=== PATIENT | female | born 1980 | race Caucasian/White ===

== ENCOUNTER 2019-12-03 10:48 | Emergency (ER) | payer BC ==
--- NOTE | 2019-12-03 12:10 | EDM.PDOC ---
ED HPI GENERAL MEDICAL PROBLEM - General Chief Complaint: Skin Complaint Stated Complaint: ALLERGIC REACTION Time Seen by Provider: 12/03/19 11:43 Source of Information: Reports: Patient History Limitations: Reports: No Limitations - History of Present Illness INITIAL COMMENTS - FREE TEXT/NARRATIVE: 39-year-old female visitor to the area presents with a pruritic rash on the bot toms of her feet, palms of her hand, distal lower extremities, and posterior arms. She also has a burning tongue. Her symptoms started yesterday and she had difficulty sleeping because of the itch. She denies any difficulty breathing, swallowing or talking. She denies a fever or chills. She notes no blisters inside her mouth. She is not on antibiotics or any other new medication. She used dog flea spray last week at home just prior to the onset of the rash. She has a history of allergies as well as anxiety. She is tried Zyrtec without any improvement in symptoms. - Related Data Allergies Allergy/AdvReac Type Severity Reaction Status Date / Time No Known Allergies Allergy Verified 12/03/19 11:22 Home Meds: Home Meds Control tab PO DAILY 12/03/19 [History] Cetirizine [ZyrTEC] 1 tab PO ASDIRECTED 12/03/19 [History] diphenhydrAMINE [Benadryl] 1 tab PO ASDIRECTED 12/03/19 [History] Past Medical History [employer]GICAL [employer]IC History: Reports: Musculoskeletal History: Reports: Fracture Psychiatric History: Reports: Anxiety, Depression - Past Surgical History Female Surgical History: Reports: Section Social & Family History - Tobacco Use Smoking Status *Q: Never Smoker - Caffeine Use Caffeine Use: Reports: Coffee, Tea - Alcohol Use Days Per Week of Alcohol Use: 2 Number of Drinks Per Day: 2 Total Drinks Per Week: 4 - Recreational Drug Use Recreational Drug Use: No ED ROS GENERAL - Review of Systems Review Of Systems: See Below Constitutional: Denies: Fever, Chills HEENT: Reports: Other (She has no intraoral lesions. Her tongue appears normal. Her throat is clear and airways patent.). Denies: Throat Pain, Throat Swelling Respiratory: Denies: Shortness of Breath, Wheezing GI/Abdominal: Denies: Nausea, Vomiting Musculoskeletal: Reports: No Symptoms Skin: Reports: Other (She has hive-like symptoms on the bottom of her feet as well as her lower extremities. Some of these have central clearing. Has appearance of erythema multiforme. No blisters present.) ED EXAM, SKIN/RASH Exam: See Below Exam Limited By: No Limitations General Appearance: Alert, WD/WN Throat/Mouth: Other (No intraoral blisters or lesions. Tongue appears normal. Airways patent.) Respiratory/Chest: No Respiratory Distress, Lungs Clear, Normal Breath Sounds. No: Respiratory Distress Skin: Other (He has hive-like areas on the bottoms of her feet as well as the palms and posterior upper arms. Blisters are present.) Course - Vital Signs Text/Narrative:: This patient has erythema multiforme minor. She has no intraoral lesions. She is not running a fever and has no systemic symptoms. She was prescribed prednisone taper. She will start off at 60 mg a day and then taper over the ne xt week. She can take Benadryl 25-50 mg every 6 hours as needed itching. She can use Zyrtec or Claritin during the day for itching. She will follow-up with her primary care provider if she is not improved when she returns home next week. To return to the ER if she develops any increasing problems such as intraoral lesions or if she develops a fever. The trigger of the rash may be the dog flea spray however the exact cause is not clear. The patient return here as needed. Last Recorded V/S: Last Vital Signs Temp 36.6 C 12/03/19 11:21 Pulse 97 12/03/19 11:21 Resp 15 12/03/19 11:21 BP 150/115 H 12/03/19 11:21 Pulse Ox 100 12/03/19 11:21 Departure - Departure Time of Disposition: 12:07 Disposition: Home, Self-Care 01 Condition: Good Clinical Impression: Erythema multiforme minor, Erythema multiforme - Discharge Information *PRESCRIPTION DRUG MONITORING PROGRAM REVIEWED*: No *COPY OF PRESCRIPTION DRUG MONITORING REPORT IN PATIENT TIMUR: No Instructions: Erythema Multiforme Referrals: PCP,None [Primary Care Provider] - Forms: ED Department Discharge Additional Instructions: Take the prescription as prescribed. Use Benadryl as needed for itching and try non sedating Zyrtec or Claritin for itching during the day. Follow up with your doctor as needed. Return to the ER if you have increased problems such as blisters inside your mouth. Sepsis Event Note (ED) - Evaluation Sepsis Screening Result: No Definite Risk
== END 2019-12-03 12:23 | disposition home or self-care (01) ==
LOC: JP.ED 10:48
DX: L51.9 Erythema multiforme, unspecified (principal)
CPT/HCPCS: 99282; 99283